=== PATIENT | female | born 1990 | race Caucasian/White ===

== ENCOUNTER 2017-06-05 21:58 | Emergency (ER) | payer MEDICAID ==
[~2017-06-05] VITALS: Ht 170.2 cm; Wt 112.5 kg
[~2017-06-05 21:58] MED LIST: BENZ200C15 PO; PROM5SYR PO
[2017-06-05 22:02] VITALS: BP 124/78
--- NOTE | 2017-06-05 22:07 | ER Report ---
History and Physical Time Seen By MD: 22:07 Hx. of Stated Complaint: SORE THROAT STARTED YEASTERDAY AFTERNOON; PT STATES THAT IT HAS GOTTEN WORSE HPI/ROS CHIEF COMPLAINT: Sore throat HISTORY OF PRESENT ILLNESS: This is a 27-year-old female. She has had a sore throat started yesterday afternoon. It is getting worse. Very difficult to eat or drink anything. No nausea or vomiting. She has mild cough. Some swollen glands in her throat. No chest pain. No abdominal pain. No known sick contacts with either strep, influenza, or mono. No rashes. Allergies: Coded Allergies: No Known Drug Allergies (Unverified , 06/05/17) Home Meds Active Scripts Amoxicillin (AMOXICILLIN) 500 Mg Capsule, 1 CAP PO Q8H, #21 CAPSULE 0 Refills Prov:IRMA SHIRLEY MD 06/05/17 Discontinued Scripts Promethazine HCl/Codeine (Prometh-Codein 6.25-10 mg/5 ml) 5 Ml Syrup, 1 TSP PO QHS Y for COUGH, #120 ML Prov:SHAGGY HAMLIN 04/19/16 Benzonatate (BENZONATATE) 200 Mg Capsule, 200 MG PO TID Y for COUGH, #15 CAP Prov:SHAGGY HAMLIN 04/19/16 Reviewed Nurses Notes: Yes Hx Substance Use Disorder: No Hx Alcohol Use: No Constitutional Vital Sign - Last 24 Hours 06/05/17 06/05/17 06/05/17 06/05/17 22:02 22:13 22:28 22:43 Temp 98.8 Pulse 116 109 106 100 Resp 18 B/P (MAP) 124/78 Pulse Ox 94 94 95 94 O2 Delivery Room Air 06/05/17 22:58 Pulse 104 Pulse Ox 94 Physical Exam General Appearance: Alert, no acute distress. Eyes: Pupils equal and round no injection. ENT: Normal oral mucosa. Moist mucous membranes. Posterior oropharynx is erythematous, exudates, and hypertrophy. Tympanic membranes and canals are normal. Neck: Neck is supple. She does have tender submandibular lymphadenopathy. Respiratory: Lungs are clear to auscultation. Cardiac: Heart regular rate and rhythm without murmurs gallops or rubs. Gastrointestinal: Abdomen is soft, nontender, no splenomegaly noted. Normal active bowel sounds. Skin: No rashes or lesions. DIFFERENTIAL DIAGNOSIS: After history and physical exam differential diagnosis was considered for sore throat with a mild cough, will check strep and influenza. Medical Decision Making Data Points Laboratory Hematology Test 06/05/17 22:27 Influenza Virus Type A (PCR) Negative (NEGATIVE) Influenza Virus Type B (PCR) Negative (NEGATIVE) Group A Streptococcus Screen Positive (NEGATIVE) Chemistry Test 06/05/17 22:27 Influenza Virus Type A (PCR) Negative (NEGATIVE) Influenza Virus Type B (PCR) Negative (NEGATIVE) Group A Streptococcus Screen Positive (NEGATIVE) ED Course/Re-evaluation ED Course Strep test is positive. Started amoxicillin 500 mg 3 times a day for 7 days. Also provided a prescription for Magic mouthwash. Other conservative measures discussed. See below. Influenza is negative. Decision to Disposition Date: Jun 05, 2017 Decision to Disposition Time: 22:46 Depart Departure Latest Vital Signs Vital Signs Date Time Temp Pulse Resp B/P (MAP) Pulse Ox O2 Delivery O2 Flow Rate FiO2 06/05/17 22:58 104 94 06/05/17 22:02 98.8 18 124/78 Room Air Impression: Primary Impression: Strep pharyngitis Condition: Condition Unchanged Disposition: HOME OR SELF-CARE New Scripts Amoxicillin (AMOXICILLIN) 500 Mg Capsule 1 CAP PO Q8H, #21 CAPSULE 0 Refills Prov: IRMA SHIRLEY MD 06/05/17 Patient Instructions: Strep Throat (ED) Additional Instructions: Your sore throat is due to a Strep infection. Take the antibiotic Amoxicillin 500mg three times a day for 7 days. You can obtain some over the counter throat lozenges to help reduce pain. Take Ibuprofen 200mg over the counter tablets, take 4 tablets every 8 hours to help with pain. Make sure to drink plenty of fluids to avoid getting dehydrated. Magic Mouthwash: This is a combination of Maalox, Benadryl and Lidocaine. take 5cc and swish and gargle and swallow. You can repeat this every 6 hours as needed to help with throat pain. IRMA SHIRLEY MD Jun 05, 2017 22:07
[2017-06-05] MEDS ORDERED: AMOX-362 PO (22:47)
[2017-06-05] MEDS ORDERED: MAG HYD/AL HYD/SIMETH 30ML UDC PO ONE (22:50)
[2017-06-05] MEDS ORDERED: LIDOCAINE 2% VISC SLN 15ML UDC PO ONE (22:50)
[2017-06-05] MEDS ORDERED: AMOXICILLIN 500 MG CAP PO ONE (22:55)
== END 2017-06-05 23:10 | disposition home or self-care (01) ==
LOC: ER 22:19
DX: J02.0 Streptococcal pharyngitis (principal)
CPT/HCPCS: 87081; 87502; 87880; 99283; Q0163

== ENCOUNTER 2017-11-05 22:03 | Emergency (ER) | payer MEDICAID ==
[~2017-11-05 22:03] MED LIST changes: +AMOX-362 PO
[2017-11-05 22:09] VITALS: BP 113/81
--- NOTE | 2017-11-05 22:12 | ER Report ---
History and Physical Time Seen By MD: 22:14 HPI/ROS CHIEF COMPLAINT: redness and swelling by right elbow. HISTORY OF PRESENT ILLNESS: This is a 27 year old female. She has some redness, warmth, swelling on medial right elbow. No injuries. Some itching and pain. Took Tylenol. No fevers or chills. No nausea or vomiting. No headache. No shortness of breath or chest pain. Allergies: Coded Allergies: No Known Drug Allergies (Unverified , 11/05/17) Home Meds Active Scripts Cephalexin Monohydrate (CEPHALEXIN) 500 Mg Cap, 500 MG PO Q6H, #20 CAP 0 Refills Prov:IRMA SHIRLEY MD 11/05/17 Discontinued Scripts Amoxicillin (AMOXICILLIN) 500 Mg Capsule, 1 CAP PO Q8H, #21 CAPSULE 0 Refills Prov:IRMA SHIRLEY MD 06/05/17 Reviewed Nurses Notes: Yes Hx Substance Use Disorder: No Hx Alcohol Use: No Constitutional Vital Sign - Last 24 Hours 11/05/17 22:09 Temp 98.6 Pulse 103 Resp 16 B/P (MAP) 113/81 Pulse Ox 93 O2 Delivery Room Air Physical Exam General: Alert, no distress. Skin: Redness, warmth, swelling in an area about 8 inches in diameter. Central with what appears to be a small insect bite. Blanches. Cardiovascular: Normal radial pulse. Neuro: normal sensation. Musculoskeletal: Normal motor function and strength. Medical Decision Making ED Course/Re-evaluation ED Course Appears to be cellulitis associated with an insect bite. Will start Cephalexin and Benadryl with some Hydrocortisone cream. Decision to Disposition Date: Nov 05, 2017 Decision to Disposition Time: 22:24 Depart Departure Latest Vital Signs Vital Signs Date Time Temp Pulse Resp B/P (MAP) Pulse Ox O2 Delivery O2 Flow Rate FiO2 11/05/17 22:09 98.6 103 16 113/81 93 Room Air Impression: Primary Impression: Bug bite Additional Impression: Cellulitis Condition: Improved Disposition: HOME OR SELF-CARE New Scripts Cephalexin Monohydrate (CEPHALEXIN) 500 Mg Cap 500 MG PO Q6H, #20 CAP 0 Refills Prov: IRMA SHIRLEY MD 11/05/17 Patient Instructions: Cellulitis (ED), Insect Bite or Sting (ED) Additional Instructions: The redness on your arm appears to be a bug bit that has caused an infection in your skin called cellulitis. Take the antibiotic cephalexin 500mg four times a day for the next 5 days. Take Benadryl 25mg over the counter tablets to reduce inflammation and itching. Get some over the counter hydrocortisone cream and apply twice a day. You can continue to use Tylenol or Ibuprofen as needed for pain. Problem Qualifiers Primary Impression: Bug bite Encounter type: initial encounter Qualified Codes: W57.XXXA - Bitten or stung by nonvenomous insect and other nonvenomous arthropods, initial encounter Additional Impression: Cellulitis Site of cellulitis: extremity Site of cellulitis of extremity: upper extremity Laterality: right Qualified Codes: L03.113 - Cellulitis of right upper limb IRMA SHIRLEY MD Nov 05, 2017 22:12
[2017-11-05] MEDS ORDERED: diphenhydrAMINE 25 MG CAP PO ONE (22:25)
[2017-11-05] MEDS ORDERED: CEPHALEXIN MONO 500 MG CAP PO ONE (22:25)
[2017-11-05] MEDS ORDERED: CEPH500C24 PO (22:26)
== END 2017-11-05 22:36 | disposition home or self-care (01) ==
LOC: ER 22:17
DX: L03.113 Cellulitis of right upper limb (principal); S50.361A Insect bite (nonvenomous) of right elbow, initial encounter; W57.XXXA Bitten or stung by nonvenomous insect and other nonvenomous arthropods, initial encounter
CPT/HCPCS: 99283; Q0163

== ENCOUNTER 2018-01-17 10:18 | Emergency (ER) | payer OTHER, MEDICAID ==
[~2018-01-17 10:18] MED LIST changes: +CEPH500C24 PO
[2018-01-17 10:25] VITALS: BP 101/74
[2018-01-17] MEDS ORDERED: DIPHTH/TETANUS/ACEL. PERTUSSIS IM ONLY ONE (10:30)
[2018-01-17] MEDS ORDERED: TETRACAIN/EPI/LIDO GEL 3ML SYR TP ONE (10:45)
--- NOTE | 2018-01-17 11:04 | ER Report ---
History and Physical Time Seen By MD: 10:45 Hx. of Stated Complaint: CUT TO RIGHT THUMB WITH KNIFE APPROX 1.5 HR AGO HPI/ROS CHIEF COMPLAINT: Cut right thumb HISTORY OF PRESENT ILLNESS: Patient is a 27-year-old female with no contributory past medical history who slipped while using a knife and cut her right thumb along the pad surface distal aspect. Bleeding is controlled. She has no numbness or tingling. She has full function of the thumb she is here because of persistent bleeding. Patient is unsure of her last tetanus status which we will update. Allergies: Coded Allergies: No Known Drug Allergies (Unverified , 11/05/17) Home Meds Discontinued Scripts Cephalexin Monohydrate (CEPHALEXIN) 500 Mg Cap, 500 MG PO Q6H, #20 CAP 0 Refills Prov:IRMA SHIRLEY MD 11/05/17 Past Medical/Surgical History Noncontributory towards this chief complaint Hx Substance Use Disorder: No Hx Alcohol Use: No Constitutional Vital Sign - Last 24 Hours 01/17/18 10:25 Temp 98.2 Pulse 85 Resp 18 B/P (MAP) 101/74 Pulse Ox 96 O2 Delivery Room Air Physical Exam General appearance: Alert no distress. Respiratory: Chest is non tender, lungs are clear to auscultation. Cardiac: Regular rate and rhythm [ ] Examination of the Right hand reveals no acute deformity. The patient is able to give a thumbs up sign, is able to make an okay sign, and is able to AB duct the fingers. Sensation is intact over the dorsal 1st web space, the volar aspect of the 2nd finger, and the volar aspect of the 5th finger. Capillary refill is brisk. There is a 1 cm superficial laceration to the volar aspect of the distal thumb. No foreign body visualized no involvement of deep structures or tendon injury. Medical Decision Making ED Course/Re-evaluation ED Course 01/17/2018 11:04:02 am Procedure: Laceration repair. Verbal consent was obtained from the patient. The 1 cm laceration on the right thumb was anesthetized using let topical. The wound was cleansed, draped and explored to its base with a gloved finger. There were no deep structures involved. No tendon injury was identified. The wound was repaired with tissue adhesive. Steri-Strips were applied The wound repair was simple. The procedure was performed by myself. Decision to Disposition Date: Jan 17, 2018 Decision to Disposition Time: 11:04 Depart Departure Latest Vital Signs Vital Signs Date Time Temp Pulse Resp B/P (MAP) Pulse Ox O2 Delivery O2 Flow Rate FiO2 01/17/18 10:25 98.2 85 18 101/74 96 Room Air Impression: Primary Impression: Thumb laceration Condition: Improved Disposition: HOME OR SELF-CARE New Scripts No Active Prescriptions or Reported Meds Patient Instructions: Laceration (GEN), Skin Adhesive Care (DC) Problem Qualifiers Primary Impression: Thumb laceration Encounter type: initial encounter Damage to nail status: without damage Foreign body presence: without foreign body Laterality: right Qualified Codes: S61.011A - Laceration without foreign body of right thumb without damage to nail, initial encounter KILLIAN ALVARADO MD Jan 17, 2018 11:04
== END 2018-01-17 11:18 | disposition home or self-care (01) ==
LOC: ER 10:37
DX: S61.011A Laceration without foreign body of right thumb without damage to nail, initial encounter (principal); W26.0XXA Contact with knife, initial encounter; Z23 Encounter for immunization
CPT/HCPCS: 90471; 90715; 99283